=== PATIENT | male | born 1935 | race Caucasian/White ===

== ENCOUNTER 2016-12-17 12:56 | Inpatient (IN) ==
--- NOTE | 2016-12-17 14:03 | Diag Imaging Result Doc PS360 ---
EXAM: CHEST-2 VIEWS HISTORY: F/U LUNG INFILT TECHNIQUE: COMPARISON: 11/28/2016 FINDINGS: The lungs are hyperexpanded. There is an increased AP diameter to the chest. Heart is not enlarged. Worsening infiltrates in the mid lungs. Partial clearing of the atelectasis of the lung bases although small infiltrates persist. Long-standing arthritic changes to each shoulder. IMPRESSION: 1.Emphysema 2.Worsening infiltrates Electronically signed by Toy Trammell 12/17/2016 2:01 PM
[2016-12-17] MEDS ORDERED: SALINE LOCK IV FLUID XX ONE (16:05)
[2016-12-17] MEDS ORDERED: MAALOX PLUS LIQUID PO PRN (16:12)
[2016-12-17] MEDS ORDERED: LOVENOX SUBQ SCH (16:15)
[2016-12-17] MEDS: ROCEPHIN 1 GM/NS 1 GM/50 ML IVPB IV SCH (17:13)
[2016-12-17] MEDS: DOXYCYCLINE 100 MG in NS 250 ML IV SCH (17:13)
[2016-12-17] MEDS: ROBITUSSIN-DM PO SCH ×2 (17:13→21:29)
[2016-12-17 17:17] LABS: AGAP 10; ALBUMIN 3.9 g/dL (3.5-5.0); ALKALINE PHOSPHATASE 79 U/L (32-122); BUN 23 mg/dL (8-22); CALCIUM 8.9 mg/dL (8.8-10.2); CHLORIDE 91 mmol/L (98-107); COSMO 276; GOT 17 U/L (10-34); GPT 11 U/L (10-44); POTASSIUM 4.7 mmol/L (3.5-5.1); SODIUM 136 mmol/L (136-145); TCO2 35 mmol/L (25-35); TOTAL PROTEIN 7.1 g/dL (6.3-8.3)
[2016-12-17 17:18] LABS: BASO% 0.2 % (0.0-0.8); HEMATOCRIT 38.4 % (42.0-52.0); HEMOGLOBIN 12.1 g/dL (14.0-18.0); IMM GRAN# 0.09 X1000 (0.0-0.04); IMM GRAN% 0.9 % (0.0-0.5); LYMPH# 0.85 X1000 (1.2-3.4); LYMPH% 8.3 % (20.5-51.1); MANUAL DIFF NEEDED? YES; MCH 29.4 PG (27-31); MCHC 31.5 g/dL (33-37); MCV 93.2 FL (81-99); MONO% 3.9 % (1.7-9.3); MPV 9.1 FL (7.4-10.4); NEUT% 86.7 % (42.2-75.2); PLT 424 X1000 (130-400); RBC 4.12 XMIL (4.7-6.1)
[2016-12-17] MEDS: ULTRAM PO SCH ×2 (17:18→20:15)
[2016-12-17] MEDS: XANAX PO SCH (17:18)
[2016-12-17 17:29] LABS: LYMPHS 10 % (21-51); MONO 2 % (1-9)
[2016-12-17] MEDS: PULMICORT INH SCH (19:47)
[2016-12-17] MEDS: ALBUTEROL NEB INH SCH (20:00)
[2016-12-17] MEDS: ZOCOR PO SCH (20:16)
[2016-12-17] MEDS: AMBIEN PO SCH (20:16)
[2016-12-17] MEDS: COLACE PO SCH (20:16)
[2016-12-17] MEDS: ANUSOL-HC CREAM PR SCH (21:47)
[2016-12-18] MEDS: ROBITUSSIN-DM PO SCH ×6 (00:43→20:17)
[2016-12-18] MEDS: TYLENOL PO PRN ×2 (00:59→10:17)
[2016-12-18] MEDS: ALBUTEROL NEB INH SCH ×6 (03:28→19:49)
--- NOTE | 2016-12-18 03:59 | HISTORY AND PHYSICAL ---
CHIEF COMPLAINT: Shortness of breath. HISTORY OF PRESENT ILLNESS: The patient is a 81-year-old white male followed in my medical practice who presents with about a 3-day history of fever. Had shortness of breath, some cough as well. The patient was noted back in early November to have pneumonia and CHF and COPD and was treated with Lasix, Levaquin, Anoro, in addition his home Aldactone and KCl. Patient responded and did better for quite an extended period of time but had redevelopment of symptoms the last 3 days after some exposure to a fever while getting his hair cut. MEDICATIONS: Prior to admission are Cymbalta 60 mg p.o. daily, Lasix 80 mg p.o. q.a.m., 40 mg p.o. q.p.m., tramadol 50 mg p.o. q.i.d., Restoril 15 mg p.o. at bedtime, Aldactone 25 mg 1/2 tablet p.o. q.a.m., Protonix 40 mg p.o. daily, KCl 20 mEq p.o. daily, Zocor 10 mg p.o. at bedtime, Senokot b.i.d., prednisone 10 mg p.o. daily, amiodarone 200 mg p.o. daily, Xarelto 10 mg p.o. daily, Xanax 0.25 mg p.o. t.i.d. Anoro 1 puff daily, albuterol nebs q.i.d. ALLERGIES: NKDA. PAST MEDICAL HISTORY: 1. COPD. 2. Severe osteoarthritis particularly of the spine. 3. Hypertension. 4. Coronary artery disease diagnosed October 2008 with 1 vessel CABG at that time. 5. DNR level 1, 07/28/2015. 6. Paroxysmal atrial fibrillation on chronic Xarelto per cardiology. PAST SURGICAL HISTORY: 1. Lumbar fusion x2 1974. 2. Appendectomy. 3. Left cataract removal. 4. Repeat back surgery 2002. 5. One-vessel CABG October 2008. 6. TURP with negative biopsy November 2015. IMMUNIZATIONS: Pneumovax 23 given 05/13/1997, 05/08/2004, April 2014. Prevnar 13 given 07/05/2015. Last influenza vaccination March 2016. FAMILY HISTORY: Notable for SD in his brother in his 40s. Mother with pacemaker, brother with alcoholism, mother with stroke. No diabetes in the family. Lung cancer in his brother who was a smoker. SOCIAL HISTORY: The patient lives in [place]. He is since 2015. had pulmonary fibrosis. He has no children. 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 Quit smoking in 1995 but has a 70 pack year history of smoking. No alcohol in many years. REVIEW OF SYSTEMS: Negative except as above. PHYSICAL EXAMINATION: VITAL SIGNS: Blood pressure 122/78, pulse 66, O2 saturations on oxygen at 4 L 88%. His oxygen may be running out though. He has got a small tank with him. He is on home oxygen chronically. SKIN: Some bruising over the forearms. No ominous lesions. Barrel chest is prominent. HEENT: YG, EOMI. Sclerae anicteric. OP minimal redness. TMs clear. NECK: No LA, TMG, JVD, bruits. CV: RRR with 3/6 murmur. LUNGS: Distant breath sounds with rare wheezes and crackles little more prominent on the right. ABDOMEN: Soft, nontender. No particular distention. BACK: No CVA tenderness. GENITOURINARY/RECTAL: Deferred. EXTREMITIES: No calf tenderness, cords or edema. NEUROLOGIC: Cranial nerves 2-12 are intact without focal deficits. IMAGING: Chest x-ray done today reveals bilateral lung infiltrates. ASSESSMENT: 1. Acute on chronic respiratory failure. 2. Bilateral pneumonia. 3. Congestive heart failure. 4. Chronic obstructive pulmonary disease. 5. Paroxysmal atrial fibrillation on chronic Xarelto therapy. 6. Coronary artery disease. 7. Hypertension. 8. Osteoarthritis. 9. Do not resuscitate level 1. PLAN: We will admit the patient and as he has recently been on Levaquin will start him on Rocephin and doxycycline. Check blood cultures x2, sputum culture, CBC, CMP. Place him on oxygen as required to keep his O2 saturation greater than 92%. Give him his home medications to include albuterol nebs and will give his Lasix at 80 mg daily. Await additional labs. Consider echocardiogram. cc: Ruiz Hinson MD
[2016-12-18] MEDS: XARELTO PO SCH (04:59)
[2016-12-18] MEDS: DOXYCYCLINE 100 MG in NS 250 ML IV SCH ×2 (04:59→20:11)
[2016-12-18] MEDS: PRILOSEC PO SCH (06:02)
[2016-12-18] MEDS ORDERED: LASIX PO SCH ×2 (09:00)
--- NOTE | 2016-12-18 09:04 | PROGRESS NOTE ---
DATE: 12/18/2016 SUBJECTIVE: Patient overall doing well and says he ate well. He still has a little work of breathing despite his oxygen per nasal cannula. OBJECTIVE: Vital Signs: Afebrile, pulse 64, blood pressure 109/57, O2 saturation 98% to 100% on 3 L per nasal cannula. Respiratory rate 18 to 20. CV: RRR. Lungs: Mild rhonchi bilaterally mid lung vizcarra. Back: Nontender. Abdomen: Soft, nontender, no mass or organomegaly. Extremities: No edema. LABS: White count 10.2, hemoglobin 12.1, platelets 426, neutrophils 86, lymphocytes 8.3. Sodium 136, potassium 4.7, chloride 91, CO2 35, BUN 23, creatinine 1.0, glucose 101. LFTs normal. ASSESSMENT: 1. Bilateral pneumonia. 2. Respiratory failure, acute on chronic, stable on oxygen replacement. 3. Congestive heart failure. 4. Chronic obstructive pulmonary disease. 5. Paroxysmal atrial fibrillation on chronic Xarelto. 6. Coronary artery disease. 7. Hypertension. 8. Osteoarthritis. 9. Do not resuscitate level 1. PLAN: We will check echocardiogram. Increase his Lasix back up to 80 in the morning and 40 in the evening. Continue oxygen. Continue IV antibiotics in the form of Rocephin and doxycycline. Monitor blood cultures. Check repeat labs in the morning to include CBC, BMP, and proBNP, and we will check echocardiogram today. cc: Ruiz Hinson MD
[2016-12-18] MEDS: PULMICORT INH SCH ×2 (10:01→19:49)
[2016-12-18] MEDS: SPIRIVA INH SCH (10:16)
[2016-12-18] MEDS: ULTRAM PO SCH ×4 (10:17→20:10)
[2016-12-18] MEDS: XANAX PO SCH ×3 (10:17→19:06)
[2016-12-18] MEDS: TOPROL XL PO SCH (10:18)
[2016-12-18] MEDS: KLOR-CON PO SCH (10:19)
[2016-12-18] MEDS: ALDACTONE PO SCH (10:19)
[2016-12-18] MEDS: COLACE PO SCH ×2 (10:20→20:10)
[2016-12-18] MEDS: ANUSOL-HC CREAM PR SCH ×2 (10:20→20:18)
[2016-12-18] MEDS: ANUSOL-HC SUPP PR PRN (10:20)
[2016-12-18] MEDS: CORDARONE PO SCH (10:20)
[2016-12-18] MEDS: CYMBALTA PO SCH (10:20)
[2016-12-18] MEDS: MIRALAX PO SCH (10:22)
[2016-12-18] MEDS: ROCEPHIN 1 GM/NS 1 GM/50 ML IVPB IV SCH (15:38)
--- NOTE | 2016-12-18 15:41 | ECHO REPORT ---
ORDER DATE: 12/18/2016 INDICATION: Congestive heart failure, coronary artery disease, aortic stenosis. FINDINGS: 1. The right atrium appears normal in size at 3.6 cm. 2. There is moderate and possibly severe tricuspid regurgitation. RV systolic pressure of 69, suggesting pulmonary hypertension. 3. Normal RV size and systolic function. 4. No significant pulmonic insufficiency. 5. Mild left atrial enlargement at 4.5 cm. 6. There is no evidence of mitral valve prolapse. There is mild mitral regurgitation. There is heavy calcification of the mitral annulus, with no evidence of stenosis. 7. Normal LV size, end-diastolic dimension of 4.5. Normal wall thicknesses, with a posterior and interventricular septal wall thickness of 1.1 cm each. Normal LV systolic function. Calculated EF of 63%, with normal wall motion. 8. Aortic valve is heavily calcified, with restriction in motion, consistent with moderate aortic stenosis. The peak gradient across the valve is 89, with a mean of 37. Valve area is 1.3 cm2 by the continuity equation. No evidence of insufficiency. 9. Aorta is slightly enlarged at the root, with a dimension of 3.9 cm. 10. No pericardial effusion seen. cc: MD Ruiz Mcdaniels MD
[2016-12-18] MEDS: ZOCOR PO SCH (20:10)
[2016-12-18] MEDS: AMBIEN PO SCH (20:10)
[2016-12-19] MEDS: ROBITUSSIN-DM PO SCH ×6 (00:32→20:27)
[2016-12-19] MEDS: ALBUTEROL NEB INH SCH ×4 (04:13→20:08)
[2016-12-19] MEDS: XARELTO PO SCH (05:00)
[2016-12-19] MEDS: DOXYCYCLINE 100 MG in NS 250 ML IV SCH ×2 (05:00→18:24)
[2016-12-19] MEDS: PRILOSEC PO SCH (06:11)
[2016-12-19 06:23] LABS: MANUAL DIFF NEEDED? NO
[2016-12-19 06:33] LABS: BASO% 0.2 % (0.0-0.8); EOS# 0.04 X1000 (0.0-0.7); EOS% 0.4 % (0.0-10.0); HEMATOCRIT 34.4 % (42.0-52.0); HEMOGLOBIN 10.7 g/dL (14.0-18.0); IMM GRAN# 0.15 X1000 (0.0-0.04); IMM GRAN% 1.5 % (0.0-0.5); LYMPH# 1.43 X1000 (1.2-3.4); LYMPH% 14.5 % (20.5-51.1); MCHC 31.1 g/dL (33-37); MCV 93.2 FL (81-99); MONO# 1.03 X1000 (0.11-0.59); MONO% 10.4 % (1.7-9.3); MPV 9.1 FL (7.4-10.4); PLT 380 X1000 (130-400); RBC 3.69 XMIL (4.7-6.1)
[2016-12-19 06:48] LABS: AGAP 10; BUN 16 mg/dL (8-22); CALCIUM 8.5 mg/dL (8.8-10.2); CHLORIDE 91 mmol/L (98-107); COSMO 271; POTASSIUM 3.9 mmol/L (3.5-5.1); SODIUM 135 mmol/L (136-145); TCO2 34 mmol/L (25-35)
--- NOTE | 2016-12-19 07:57 | Diag Imaging Result Doc PS360 ---
EXAM: CHEST-2 VIEWS HISTORY: hypoxia TECHNIQUE: AP and lateral chest three views COMMENT: There is apparent COPD. The heart size is at the upper limits of normal. Some fibrosis is present in the lung bases which has not changed since 04/16/2016. Severe degenerative changes are noted in the shoulders. This may be related to inflammatory arthritis, which may also be related to the pulmonary fibrosis. There may be some additional atelectasis particularly in the lingula. IMPRESSION: Minimal lingular atelectasis, otherwise essentially unchanged since previous studies. Electronically signed by Edgardo Wheatley 12/19/2016 7:55 AM
--- NOTE | 2016-12-19 08:43 | PROGRESS NOTE ---
DATE: 12/19/2016 SUBJECTIVE: Patient says he "feels okay". He is sitting up, eating his breakfast. No specific complaints. OBJECTIVE: Vital Signs: Afebrile. Pulse 69, respirations 19, blood pressure 121/85, O2 saturation 93% on 3 L per nasal cannula. CV: RRR with a 3/6 blowing murmur. Lungs: Rhonchi on the right with rare wheeze. Decreased breath sounds slightly on the left. Overall good air movement. Abdomen: Nontender and nondistended. Extremities: No calf tenderness, cords, or edema. Neurologic: Nonfocal. Cranial nerves intact. Diagnostic Data: Chest x-ray when compared with previous chest x-rays and reviewed by radiologist in detail shows minimal lingular atelectasis, pulmonary fibrosis, severe degenerative osteoarthritis of the shoulders. Labs: Sodium 135, potassium 3.9, chloride 92, CO2 34, BUN 16, creatinine 0.9, calcium 8.5, glucose 97. ProBNP 785. White blood cell count 9.89, hemoglobin 10.7, platelets 380,000, neutrophils 73, lymphocytes 14.5, monocytes 10. Echocardiogram results done yesterday reveal EF of 63%, moderate to severe TR, pulmonary hypertension, mild MR, heavy calcification only mitral annulus with no stenosis. Aortic valve heavily calcified with restriction in motion, consistent with moderate aortic stenosis. No AI. Aortic root slightly enlarged at 3.9 cm. No pericardial effusion. ASSESSMENT: 1. Possible bronchitis. 2. Pulmonary fibrotic changes. 3. Respiratory failure, acute on chronic, improving. 4. Chronic obstructive pulmonary disease, on home oxygen therapy. 5. Moderate to severe tricuspid regurgitation. 6. Moderate aortic stenosis. 7. Paroxysmal atrial fibrillation, on chronic Xarelto. 8. Coronary artery disease. 9. Hypertension. 10. Osteoarthritis. 11. Un-lom-cygenhmtjwo level 1. PLANS: I am going to put his Lasix at 40 mg b.i.d. Continue oxygen therapy. Continue IV Rocephin and doxycycline. Blood cultures remain negative at this point. We will continue the spironolactone. I do not feel he is a surgical candidate in regard to the valve situation due to his advanced COPD and other comorbidities such as PAF and CAD. Patient will be placed on IV Solu- Medrol. Continue Pulmicort, Spiriva, and albuterol nebulizers to try to maximize his conservative measures and get him back home on his home oxygen. He is in agreement with our treatment plan. cc: Ruiz Hinson MD
[2016-12-19] MEDS: ULTRAM PO SCH ×4 (09:32→20:25)
[2016-12-19] MEDS: MIRALAX PO SCH (09:33)
[2016-12-19] MEDS: COLACE PO SCH ×2 (09:35→20:25)
[2016-12-19] MEDS: XANAX PO SCH ×3 (09:35→18:24)
[2016-12-19] MEDS: SOLU-MEDROL IV SCH ×2 (09:35→18:24)
[2016-12-19] MEDS: CORDARONE PO SCH (09:35)
[2016-12-19] MEDS: TOPROL XL PO SCH (09:36)
[2016-12-19] MEDS: CYMBALTA PO SCH (09:36)
[2016-12-19] MEDS: ALDACTONE PO SCH (09:36)
[2016-12-19] MEDS: LASIX PO SCH ×2 (09:37→20:26)
[2016-12-19] MEDS: ANUSOL-HC SUPP PR PRN ×2 (09:37→20:25)
[2016-12-19] MEDS: KLOR-CON PO SCH (09:37)
[2016-12-19] MEDS: ANUSOL-HC CREAM PR SCH ×2 (09:37→20:26)
[2016-12-19] MEDS: PULMICORT INH SCH ×2 (09:53→20:08)
[2016-12-19] MEDS: SPIRIVA INH SCH (09:53)
[2016-12-19] MEDS: ROCEPHIN 1 GM/NS 1 GM/50 ML IVPB IV SCH (18:25)
[2016-12-19] MEDS: ZOCOR PO SCH (20:26)
[2016-12-19] MEDS: AMBIEN PO SCH (20:26)
[2016-12-20] MEDS: SOLU-MEDROL IV SCH (00:16)
[2016-12-20] MEDS: ROBITUSSIN-DM PO SCH ×3 (01:48→08:34)
[2016-12-20] MEDS: ALBUTEROL NEB INH SCH ×2 (03:46→10:09)
[2016-12-20 05:09] VITALS: BP 119/60
[2016-12-20] MEDS: DOXYCYCLINE 100 MG in NS 250 ML IV SCH (05:14)
[2016-12-20] MEDS: XARELTO PO SCH (05:15)
[2016-12-20] MEDS: PRILOSEC PO SCH (06:22)
[2016-12-20] MEDS: ULTRAM PO SCH (08:24)
[2016-12-20] MEDS: XANAX PO SCH (08:24)
[2016-12-20] MEDS: ALDACTONE PO SCH (08:25)
[2016-12-20] MEDS: LASIX PO SCH (08:25)
[2016-12-20] MEDS: KLOR-CON PO SCH (08:25)
[2016-12-20] MEDS: CORDARONE PO SCH (08:25)
[2016-12-20] MEDS: COLACE PO SCH (08:25)
[2016-12-20] MEDS: MIRALAX PO SCH (08:26)
[2016-12-20] MEDS: CYMBALTA PO SCH (08:26)
[2016-12-20] MEDS: TOPROL XL PO SCH (08:26)
--- NOTE | 2016-12-20 08:54 | PROGRESS NOTE ---
DATE: 12/20/2016 SUBJECTIVE: Patient doing well. No complaints. OBJECTIVE: Vital Signs: Afebrile. Pulse 64, blood pressure 119/60. O2 saturation 90% on room air, 100% on 2 L/minute per nasal cannula. Cardiovascular: RRR. Lungs: Distant breath sounds. CTA. Abdomen: Nontender and nondistended. Extremities: No calf tenderness, cords or edema. Neurologic: Nonfocal. Prominent arthritic changes diffusely. ASSESSMENT: 1. Bronchitis improved. 2. Pulmonary fibrotic changes per chest x-ray, prominent. 3. Respiratory failure. Acute on chronic. Now stable back on his home oxygen therapy. 4. Chronic obstructive pulmonary disease. 5. Moderate to severe TR. 6. Moderate . 7. Paroxysmal atrial fibrillation on chronic Xarelto. 8. Coronary artery disease. 9. Hypertension. 10. Osteoarthritis. 11. DO NOT RESUSCITATE level 1. PLAN: Patient has returned to his baseline and is oxygenating well back on his 2 L of oxygen. Lungs are clear. Chest x-ray looks more like fibrotic changes than acute infiltrates. We will resume his home regimen along with Omnicef, doxycycline, Robitussin DM, prednisone taper. His Lasix will be at 40 mg b.i.d. with low-dose potassium supplementation. He will follow up in my office in 1 week. He will resume his home oxygen therapy. cc: Ruiz Hinson MD
[2016-12-20] MEDS ORDERED: PREDNISONE PO SCH (09:00)
[2016-12-20] MEDS: SPIRIVA INH SCH (10:09)
[2016-12-20] MEDS: PULMICORT INH SCH (10:09)
[2016-12-20] MEDS ORDERED: DOXYCYCLINE PO SCH (21:00)
[2016-12-20] MEDS ORDERED: OMNICEF PO SCH (21:00)
--- NOTE | 2017-01-06 05:53 | DISCHARGE SUMMARY ---
ADMISSION DATE: 12/17/2016 DISCHARGE DATE: 12/20/2016 ADMISSION DIAGNOSES: 1. Acute on chronic respiratory failure. 2. Bilateral pneumonia pronounced bronchitis with pulmonary fibrotic changes per chest x-ray. 3. Congestive heart failure. 4. Chronic obstructive pulmonary disease. 5. PAF on chronic Xarelto therapy. 6. Coronary artery disease. 7. Hypertension. 8. Osteoarthritis. 9. DNR level 1. 10. Moderate to severe TR. 11. Moderate aortic stenosis. 12. Osteoarthritis severe. PROCEDURES: 1. Chest x-ray done 12/17/2016 revealing emphysema and worsening infiltrates in the mid lungs, partial clearing of atelectasis in the lung bases. 2. Echocardiogram done 12/18/2016 revealing normal size right atrium. Moderate to severe TR, pulmonary hypertension notable. Mild MR. Heavily calcified mitral annulus with no stenosis. Normal LV systolic function with EF of 63% with normal wall motion. Aortic valve heavily calcified with restriction in motion consistent with moderate aortic stenosis. Peak gradient across the valve of 89 with a mean of 37. Valve area 1.3. Aorta slightly enlarged at the root with a dimension of 3.9. No pericardial effusion. 3. Repeat chest x-ray done 12/19/2016 revealing minimal lingular atelectasis. Fibrotic changes in the lungs not changed particularly since 04/16/2016. REASON FOR ADMISSION AND HOSPITAL COURSE: The patient is a 81-year-old white male followed in my medical practice. He is on home oxygen at 2 L/minute per nasal cannula due to chronic COPD. He presented with a 3-day history of fevers, shortness of breath and cough. Chest x-ray was concerning for possible pneumonia versus bronchitis. The patient was admitted as his O2 saturations in the office were 88% on 4 L. He was transferred over and started on Rocephin and doxycycline. Blood cultures x2 were obtained and were negative at discharge. Sputum cultures grew out normal lorraine. He was placed on oxygen, albuterol nebs and given Lasix 80 mg IV. BUN was 23, creatinine 1.0. LFTs normal. White count 10. Rhonchi in the lung vizcarra were present early and some wheezing was prominent. By 12/20, patient had improved. He was eating well. Ambulating small escapades in the lewis. Chest x-ray showed fibrotic changes but no acute infiltrates. He was down to 2 L that he was on at home. His lungs were clear. He was able to be switched over to a home regimen on antibiotics and prednisone taper. He was continued on some Lasix orally with potassium supplementation. He was maintained on his chronic Xarelto therapy. DISCHARGE MEDICATIONS: Oxygen at 2 L/minute per nasal cannula. Zocor 10 mg p.o. at bedtime. Amiodarone 200 mg p.o. daily, Toprol-XL 25 mg p.o. daily. Nexium 40 mg p.o. daily, Cymbalta 60 mg p.o. daily. Albuterol nebs q.i.d. Colace 100 mg p.o. b.i.d. Anusol HC cream IN to the rectal area for hemorrhoids. Xarelto 10 mg p.o. daily. Spiriva 1 puff daily. Pulmicort 1 puff daily 0.5 mg. MiraLAX 17 g in 8 ounces of water daily, KCl 10 mEq p.o. daily. Aldactone 12.5 mg p.o. every morning. Prednisone taper from 50 mg daily. Tramadol 50 mg p.o. q.i.d. Lunesta 3 mg p.o. at bedtime. Xanax 0.25 mg p.o. t.i.d. Tylenol Arthritis p.r.n. Anusol HC cream to the rectal area as stated. Omnicef 300 mg p.o. b.i.d. Robitussin DM 10 mL p.o. q.4 hours p.r.n. cough. Lasix 40 mg p.o. b.i.d. Doxycycline 100 mg p.o. b.i.d. He will stay on these antibiotics for a total of 10 days. FOLLOW UP: He will follow up in my office in 1-2 weeks. Notable labs showed blood cultures times 2 negative throughout hospitalization. White count on presentation 10 and was 9.8 at discharge. Platelets 380,000. Hemoglobin 10.7. CMP normal. ProBNP 785. Creatinine 0.9 at discharge, potassium 3.9. cc: Ruiz Hinson MD
== END 2016-12-20 11:55 | disposition hospice, home (50) ==
LOC: RAD 12:56 → 3N 14:55
PROVIDERS: ADMIT Family Medicine; ATTEND Family Medicine